=== PATIENT | male | born 1975 | race Caucasian/White ===

== ENCOUNTER 2022-12-03 11:10 | Observation (INO) ==
[2022-12-03] MEDS ORDERED: Pantoprazole VIAL 40 MG VIAL IV ONE (14:04)
[2022-12-03 14:59] LABS: Hematocrit 44 % (42-52); Hemoglobin 14.6 g/dL (14.0-18.0); Mean Corpuscular HGB Conc 33 g/dL (31-36); Mean Corpuscular Hemoglobin 32 pg (27-31); Mean Corpuscular Volume 97 fL (80-94); Mean Platelet Volume 8.5 fL (7.4-10.4); Platelet Count 261 10^3/uL (150-450); Red Cell Distribution Width 13 % (10-15); White Blood Count 19.1 10^3/uL (3.5-10.8)
[2022-12-03 15:11] LABS: INR 1.31 (0.88-1.18)
[2022-12-03 15:24] LABS: Albumin 3.9 g/dL (3.2-5.2); Albumin/Globulin Ratio 1.5 (1-3); C Reactive Protein 215.3 mg/L (<8.01); Creatinine, Serum 0.82 mg/dL (0.67-1.17); Globulin 2.6 g/dL (2-4); Potassium 3.9 mmol/L (3.5-5.0); Total Bilirubin 1.3 mg/dL (0.2-1.0); Total Protein 6.5 g/dL (6.4-8.9); eGFR CKD-EPI 109.7 (>60)
[2022-12-03 15:33] LABS: ABS Eosinophils 0.1 10^3/ul (0-0.6); ABS Lymphocytes 0.8 10^3/ul (1.0-4.8); ABS Monocytes 1.8 10^3/ul (0-0.8); ABS Neutrophils 16.3 10^3/ul (1.5-7.7); Eosinophil % 0.3 %; Lymphocyte % 4.2 %
[2022-12-03] MEDS ORDERED: Iohexol 350 (CONTRAST) 500 ML MDV IV ONE (16:26)
[2022-12-03] MEDS ORDERED: Piperacillin/Tazobac ADVAN 3.375 GM in NS 0.9% 100 ml BAG 100 ML IV ONE (16:41)
[2022-12-03] MEDS ORDERED: NS 0.9% 1000 ml BAG 1,000 ML IV ONE (16:46)
[2022-12-03] MEDS ORDERED: cefTRIAXone 1 gm/50 mL D5W 1 GM/50 ML BAG IV SCH (21:00)
[2022-12-03] MEDS: metroNIDAZOLE IV 500 MG/100ML 500 MG/100 ML BAG IVPB SCH (22:01)
[2022-12-03] MEDS ORDERED: Acetaminophen IV 1 GM/100ML 1,000 MG/100 ML BAG IV ONE (22:18)
[2022-12-03] MEDS: NS 0.9% 1000 ml BAG 1,000 ML IV SCH (22:55)
[2022-12-03] MEDS ORDERED: Nicotine PATCH 7 MG/24 HR PATCH TRANSDERM SCH (23:00)
[2022-12-04] MEDS: metroNIDAZOLE IV 500 MG/100ML 500 MG/100 ML BAG IVPB SCH ×2 (05:05→13:15)
[2022-12-04 05:45] LABS: ABS Eosinophils 0.2 10^3/ul (0-0.6); ABS Lymphocytes 1.8 10^3/ul (1.0-4.8); ABS Monocytes 1.5 10^3/ul (0-0.8); ABS Neutrophils 9.3 10^3/ul (1.5-7.7); Eosinophil % 1.4 %; Hematocrit 42 % (42-52); Hemoglobin 13.9 g/dL (14.0-18.0); Lymphocyte % 14.3 %; Mean Corpuscular HGB Conc 33 g/dL (31-36); Mean Corpuscular Hemoglobin 32 pg (27-31); Mean Corpuscular Volume 96 fL (80-94); Mean Platelet Volume 8.5 fL (7.4-10.4); Nucleated Red Blood Cells % 0.1; Platelet Count 270 10^3/uL (150-450); Red Blood Count 4.42 10^6 /uL (4.18-5.48); Red Cell Distribution Width 13 % (10-15); White Blood Count 12.8 10^3/uL (3.5-10.8)
[2022-12-04 06:32] LABS: Calcium 8.5 mg/dL (8.6-10.3); Creatinine, Serum 0.89 mg/dL (0.67-1.17); Magnesium 2.2 mg/dL (1.9-2.7)
[2022-12-04] MEDS: NS 0.9% 1000 ml BAG 1,000 ML IV SCH (08:16)
[2022-12-04 11:25] VITALS: BP 142/83
== END 2022-12-04 14:30 | disposition home or self-care (01) ==
LOC: ED 11:10 → EDHOLD 11:10 → SSU 21:24
PROVIDERS: ADMIT Student in an Organized Health Care Education/Training Program; ATTEND Student in an Organized Health Care Education/Training Program